=== PATIENT | female | born 1985 | race Caucasian/White ===

== ENCOUNTER 2019-12-24 07:33 | Inpatient (IN) | payer MEDICAID ==
[~2019-12-24] VITALS: Ht 177.8 cm; Wt 97.5 kg
[2019-12-24] MEDS ORDERED: METHYLERGONOVINE 0.2 MG/ML AMP IM PRN ×2 (08:15→20:45)
[2019-12-24] MEDS ORDERED: CARBOPROST 250 MCG/ML AMP IM PRN (08:15)
[2019-12-24 08:55] LABS: BASOPHILS % (AUTO) 0.4 % (0.0-2.0); EOSINOPHILS # (AUTO) 0.1 K/uL (0-0.4); EOSINOPHILS % (AUTO) 1.3 % (0.0-4.0); HEMATOCRIT 35.9 % (36-48); HEMOGLOBIN 11.7 g/dL (12.0-16.0); LYMPHOCYTES # (AUTO) 1.4 K/uL (2.5-16.5); MEAN CORPUSCULAR HEMOGLOBIN 28 pg (27-31); MEAN CORPUSCULAR HGB CONC 33 g/dL (33-37); MEAN CORPUSCULAR VOLUME 87.3 fL (80-94); MONOCYTES # (AUTO) 0.9 K/uL (0.8-1.0); MONOCYTES % (AUTO) 10.5 % (1.7-9.3); NEUTROPHILS # (AUTO) 6.3 K/uL (1.8-7.7); NEUTROPHILS % (AUTO) 71.8 % (42.2-75.2); PLATELET COUNT (AUTO) 206 K/uL (140-450); RED BLOOD CELL COUNT(AUTO) 4.11 MIL/uL (4.20-5.40); RED CELL DISTRIBUTION WIDTH 13.5 % (11.6-13.7); WHITE BLOOD COUNT (AUTO) 8.8 K/uL (4.8-10.8)
[2019-12-24 09:04] LABS: APPEARANCE,URINE CLOUDY (CLEAR); BILIRUBIN,URINE NEGATIVE (NEGATIVE); BLOOD, URINE NEGATIVE (NEGATIVE); COLOR,URINE DARK YELLOW (YELLOW); LEUKOCYTE ESTERASE ,URINE NEGATIVE (NEGATIVE); NITRITE, URINE NEGATIVE (NEGATIVE); PH,URINE 6.5 (5.0-9.0); UGLUCOSE NEGATIVE (NEGATIVE)
[2019-12-24] MEDS ORDERED: PROMETHAZINE 25 MG/ML VIAL IVP PRN (09:15)
[2019-12-24] MEDS ORDERED: MORPHINE SULFATE 5 MG/ML VIAL IVP PRN (09:15)
[2019-12-24] MEDS ORDERED: MISOPROSTOL 25 MCG TAB VG SCH (09:25)
--- NOTE | 2019-12-24 09:27 | NUR ---
PATIENT HAS BEEN SCREENED AND CATEGORIZED LOW NUTRITION RISK. PATIENT WILL BE SEEN WITHIN 7 DAYS OF ADMISSION. 12/30/[address]
[2019-12-24] MEDS: LACTATED RINGERS 1,000 ML IV SCH ×3 (09:30→17:28)
[2019-12-24] MEDS ORDERED: PREN-380 PO (10:33)
[2019-12-24] MEDS ORDERED: OSC500 PO (10:33)
[2019-12-24] MEDS ORDERED: OXYTOCIN 20 UNITS in LACTATED RINGERS 1,000 ML IV SCH (14:25)
[2019-12-24] MEDS ORDERED: OXYTOCIN 20 UNITS/LR PREMIX 1,000 ML IV ONE (14:28)
[2019-12-24] MEDS ORDERED: ROPIVACAINE 0.2%/NS PREMIX 200 ML EPI ONE (16:44)
[2019-12-24] MEDS ORDERED: TEMAZEPAM 15 MG CAP PO PRN (20:45)
[2019-12-24] MEDS ORDERED: OXYTOCIN 10 UNITS/ML VIAL IM PRN (20:45)
[2019-12-24] MEDS ORDERED: SODIUM PHOSPHATE 118 ML ENEM RC PRN (20:45)
[2019-12-24] MEDS ORDERED: METHYLERGONOVINE 0.2 MG TAB PO PRN (20:45)
[2019-12-24] MEDS ORDERED: IBUPROFEN 800 MG TAB PO PRN (20:45)
[2019-12-24] MEDS ORDERED: BENZOCAINE/MENTHOL 20%-0.5% 60 GM CAN TP PRN (20:45)
[2019-12-24] MEDS ORDERED: oxyCODONE/APAP 5/325 MG 1 TAB TAB PO PRN (20:45)
[2019-12-24] MEDS ORDERED: DOCUSATE SOD/SENNA 50/8.6 MG 1 TAB PO SCH (21:00)
[2019-12-25 06:47] LABS: HEMATOCRIT 36.8 % (36-48); HEMOGLOBIN 12.2 g/dL (12.0-16.0)
== END 2019-12-26 22:14 | disposition home or self-care (01) | DRG 560 ==
LOC: MFCC 07:33
PROVIDERS: ADMIT Obstetrics & Gynecology; ATTEND Obstetrics & Gynecology
PROC: 10D07Z6 Extraction of Products of Conception, Vacuum, Via Natural or Artificial Opening (ICD-10-PCS; principal; 2019-12-24)
PROC: 3E0R3BZ Introduction of Anesthetic Agent into Spinal Canal, Percutaneous Approach (ICD-10-PCS; 2019-12-24)
PROC: 00HU33Z Insertion of Infusion Device into Spinal Canal, Percutaneous Approach (ICD-10-PCS; 2019-12-24)
PROC: 3E0P7VZ Introduction of Hormone into Female Reproductive, Via Natural or Artificial Opening (ICD-10-PCS; 2019-12-24)
DX: O66.5 Attempted application of vacuum extractor and forceps (principal); Z37.0 Single live birth; Z3A.39 39 weeks gestation of pregnancy
CPT/HCPCS: 36415; 81003; 85018; 85025; 86592; 86886; 86900; 86901; J2590; J2795; J7120